=== PATIENT | female | born 1935 | race Caucasian/White ===

== ENCOUNTER 2020-03-26 12:22 | Emergency (ER) | payer MEDICARE, MEDICAID ==
[2020-03-26] MEDS ORDERED: Sodium Chloride 0.9% 2,000 ML ONE (12:55)
[2020-03-26 13:19] LABS: #Eosinphils 0.1 thou/uL (0.0-0.7); #Lymphocytes 1.3 thou/uL (1.20-3.40); #Monocytes 0.5 thou/uL (0.11-0.59); %Basophils 0.8 % (0.0-1.0); %Eosinophils 1.5 % (0.0-10.0); %Monocytes 8.7 % (0.0-10.0); Mean Corpuscular HGB CONC 32.9 g/dL (32.0-36.0); Mean Corpuscular Hemoglobin 31.5 pg (27.0-31.0); Mean Corpuscular Volume 95.6 fL (78.0-98.0); Mean Platelet Volume 9.2 fL (7.4-10.4); Platelet Count 280 thou/uL (130-400); RBC Distribution Width 11.3 % (11.5-14.5); Red Blood Cell (RBC) Count 5.09 mill/uL (4.20-5.40)
--- NOTE | 2020-03-26 13:23 | RAD ---
RADIOGRAPH CHEST 1 VIEW: DATE: 03/26/2020 TIME: 1:18 PM HISTORY: 85-year-old female follow-up pneumonia COMPARISON: 03/22/2020 FINDINGS: Alveolar infiltrates at left lower lobe and lingula are more confluent and more dense now than before . Small focal patchy nodular infiltrate at left midlung zone and the upper lobe is more dense now. Nonspecific mild haziness at right base. No cardiomegaly or pneumothorax. IMPRESSION: Interval worsening of left-sided pneumonia involving much of the left lower lobe and portions of the left upper lobe
[2020-03-26] MEDS ORDERED: Azithromycin 500 MG VIAL ONE (13:45)
[2020-03-26] MEDS ORDERED: Sodium Chloride 0.9% 100 ML ONE (13:45)
[2020-03-26] MEDS ORDERED: Sodium Chloride 0.9% 250 ML 250 ML ONE (13:45)
[2020-03-26] MEDS ORDERED: cefTRIAXone\\ROCEPHIN 2 GM VIAL ONE (13:45)
[2020-03-26 14:03] LABS: ALT (SGPT) 27 U/L (8-55); AST (SGOT) 29 U/L (5-34); Albumin 3.1 g/dL (3.4-4.8); Alkaline Phosphatase 65 U/L (40-110); Anion Gap 14 mmol/L (10-20); BUN (Urea Nitrogen) 20 mg/dL (9.8-20.1); Bilirubin, Total 0.6 mg/dL (0.2-1.2); Calc. Creatinine Clearance 0 mL/min (70-130); Calcium 7.9 mg/dL (7.8-10.44); Carbon Dioxide 27 mmol/L (23-31); Chloride 102 mmol/L (98-107); Globulin 2.7 g/dL (2.4-3.5); Glucose 102 mg/dL (83-110); Potassium 3.3 mmol/L (3.5-5.1); Protein, Total 5.8 g/dL (5.8-8.1); Sodium 140 mmol/L (136-145)
[2020-03-26 14:21] LABS: Bilirubin Small (Negative); Blood, Urine Negative (Negative); Clarity Clear (Clear); Glucose, Urine (Dipstick) Negative (Negative); Ketone, Urine Negative (Negative); Leukocyte Negative (Negative); Nitrite Negative (Negative); Protein, Urine (Dipstick) 30 mg/dL (Neg-Trace); Specific Gravity, Urine 1.025 (1.005-1.030); Urobilinogen 0.2 mg/dL (Less than 2)
[2020-03-26 14:34] LABS: WBC/HPF 0-3 HPF (0-3)
[2020-03-26 14:35] LABS: Squamous Epithelial 0-3 HPF (0-3)
== END 2020-03-26 15:40 | disposition home or self-care (01) ==
LOC: NAV ERS 12:22
DX: U07.1 COVID-19 (principal); J12.82 Pneumonia due to coronavirus disease 2019; E03.9 Hypothyroidism, unspecified; Z79.899 Other long term (current) drug therapy
CPT/HCPCS: 71045; 80053; 81003; 81015; 83605; 84484; 85025; 93005; J0456; J0696; J3490; J7050

== ENCOUNTER 2020-10-01 17:58 | Emergency (ER) | payer MEDICARE ==
[2020-10-01 19:08] LABS: ALT (SGPT) 12 U/L (8-55); AST (SGOT) 12 U/L (5-34); Albumin 3.4 g/dL (3.4-4.8); Alkaline Phosphatase 109 U/L (40-110); Anion Gap 14 mmol/L (10-20); BUN (Urea Nitrogen) 16 mg/dL (9.8-20.1); Bilirubin, Total 0.5 mg/dL (0.2-1.2); Calc. Creatinine Clearance 0 mL/min (70-130); Calcium 9.5 mg/dL (7.8-10.44); Carbon Dioxide 25 mmol/L (23-31); Chloride 100 mmol/L (98-107); Globulin 3.4 g/dL (2.4-3.5); Glucose 117 mg/dL (83-110); Potassium 3.5 mmol/L (3.5-5.1); Protein, Total 6.8 g/dL (5.8-8.1); Sodium 135 mmol/L (136-145)
[2020-10-01 19:28] LABS: #Basophils 0.1 thou/uL (0.0-0.2); #Eosinphils 0.2 thou/uL (0.0-0.7); #Lymphocytes 1.5 thou/uL (1.20-3.40); #Monocytes 1.2 thou/uL (0.11-0.59); #Neutrophils 7.5 thou/uL (1.40-6.50); %Basophils 0.9 % (0.0-1.0); %Eosinophils 1.5 % (0.0-10.0); %Lymphocytes 13.9 % (21.0-51.0); %Monocytes 11.8 % (0.0-10.0); %Neutrophils 71.9 % (42.0-75.0); Hemoglobin 12.9 g/dL (12.0-16.0); Mean Corpuscular HGB CONC 31.2 g/dL (32.0-36.0); Mean Corpuscular Hemoglobin 29.8 pg (27.0-31.0); Mean Corpuscular Volume 95.5 fL (78.0-98.0); Mean Platelet Volume 7.5 fL (7.4-10.4); Platelet Count 299 thou/uL (130-400); Red Blood Cell (RBC) Count 4.34 mill/uL (4.20-5.40); White Blood Cell (WBC) Count 10.4 thou/uL (4.8-10.8)
[2020-10-01] MEDS ORDERED: Sulfameth/Trimethoprim DS 800-160mg TAB ONE (20:07)
== END 2020-10-01 21:00 ==
LOC: NAV ERS 17:58
DX: L03.115 Cellulitis of right lower limb (principal); E03.9 Hypothyroidism, unspecified; Z79.899 Other long term (current) drug therapy
CPT/HCPCS: 80053; 83605; 85025; 99283